=== PATIENT | male | born 1990 | race Caucasian/White ===

== ENCOUNTER 2022-03-11 05:55 | Outpatient (CLI) | payer BC, SELFPAY ==
--- NOTE | 2022-03-11 06:04 | US_ITS ---
WS: [id number] RENAL ULTRASOUND URINARY BLADDER ULTRASOUND HISTORY: FLANK PAIN, RIGHT COMPARISON: None available. TECHNIQUE: 2-D and color Doppler imaging of the kidney submitted. Right kidney: 11.1 cm x 4.3 cm x 5.3 cm. Normal echogenicity with no hydronephrosis or mass. Left kidney: 10.2 cm x 4.4 cm x 5.6 cm. Normal echogenicity with no hydronephrosis or mass. Aorta: Normal. Urinary Bladder: Bladder is only moderately well distended. Volume is 27 mL. No significant post void residual remains. US/US renal BI with PV bladder IMPRESSION: 1. Normal renal ultrasound. 2. No post void residual. Otherwise limited evaluation of the bladder due to n ondistention.
== END 2022-03-11 05:56 | disposition home or self-care (01) ==
LOC: RAD 05:57
PROVIDERS: PCP Family Medicine; Visit Provider Family Medicine
DX: R10.9 Unspecified abdominal pain (principal); R94.4 Abnormal results of kidney function studies
CPT/HCPCS: 76770; 76857

== ENCOUNTER → 2023-10-05 09:52 | Outpatient (BNVA) | payer BC, SELFPAY | PROVIDERS: PCP Family Medicine; Visit Provider Clinical Nurse Specialist Adult Health | DX: J02.9 Acute pharyngitis, unspecified (principal) | CPT/HCPCS: 87071; 87880 ==

== ENCOUNTER → 2025-08-22 08:12 | Outpatient (BNVA) | payer BC, SELFPAY | PROVIDERS: PCP Family Medicine; Visit Provider Family Medicine | DX: R53.81 Other malaise (principal); R53.83 Other fatigue; Z00.00 Encounter for general adult medical examination without abnormal findings; Z51.81 Encounter for therapeutic drug level monitoring; E11.9 Type 2 diabetes mellitus without complications; Z13.6 Encounter for screening for cardiovascular disorders | CPT/HCPCS: 80053; 80061; 83036; 84439; 84443; 85025 ==